=== PATIENT | male | born 1950 ===

== ENCOUNTER → 2017-12-06 | Outpatient (REF) | payer MEDICARE, OTHER | LOC: M LAB REF 17:30 | DX: E04.1 Nontoxic single thyroid nodule (principal) | CPT/HCPCS: 88173 ==

== ENCOUNTER → 2018-12-05 | Outpatient (REF) | payer MEDICARE, OTHER | LOC: M LAB REF 15:54 | PROVIDERS: ATTEND Internal Medicine Endocrinology, Diabetes & Metabolism | DX: E04.1 Nontoxic single thyroid nodule (principal) ==